=== PATIENT | male | born 1950 | race Caucasian/White ===

== ENCOUNTER 2018-11-22 08:51 | Inpatient (IN) ==
[~2018-11-22 08:51] MED LIST: DEXTROSE 50% 25 GM/50 ML SYRINGE IV PRN; GLUCAGON 1 MG VIAL IM PRN
[2018-11-22 09:21] LABS: Basophils % 0.5 % (0.0-0.8); Eosinophils # 0.1 10*3/uL (0.0-0.87); Eosinophils % 1.4 % (0.00-10.9); Hematocrit 42.7 VOL% (42.0-52.0); Hemoglobin 14.6 GM/DL (14.0-18.0); Immature Granulocytes % 0.5 %; Immature Granulocytes Absolute 0.03 #; Lymphocytes # 1.5 10*3/uL (1.4-4.0); Lymphocytes % 23.4 % (21.2-54.2); Mean Corpuscular HGB Conc 34.2 GM/DL (32-36); Mean Corpuscular Hemoglobin 32 PG (27-34); Mean Corpuscular Volume 92.4 FL (87-102); Mean Platelet Volume 9.2 FL (9.6-12.0); Monocytes # 0.4 10*3/uL (0.11-0.8); Monocytes % 6.8 % (1.7-12.7); Neutrophils # 4.3 10*3/uL (1.4-7.4); Neutrophils % 67.4 % (38.7-73.9); Platelet Count 141 T/CUMM (130-400); Red Blood Count 4.62 MC/CUMM (3.8-5.5); Red Cell Distribution Width 12.9 % (9.3-17.3); White Blood Count 6.4 T/CUMM (4-12)
[2018-11-22 09:53] LABS: Albumin 4.5 G/DL (3.4-5.0); Bilirubin,Total 1.2 MG/DL (0.2-1.0); Calcium 9.3 MG/DL (8.5-10.1); Potassium 3.5 MMOL/L (3.5-5.1); Total Protein 7.2 G/DL (6.4-8.3)
[2018-11-22 10:12] LABS: ABG HCO3 26.1 MMOL/L (20-26); ABG Oxygen Saturation 96.5 % (95-100); ABG PCO2 38.7 MM HG (35-48); ABG PH 7.438 (7.35-7.45); ABG PO2 77.5 MM HG (80-95); ABG TCO2 22.4 MMOL/L (23-27); Allen Test Positive; Pt O2 Delivery Device Room Air
[2018-11-22] MEDS ORDERED: CLORAZEPATE 3.75 MG TABLET PO PRN (10:26)
[2018-11-22] MEDS ORDERED: CALCIUM (CARBONATE) 600 MG TABLET PO SCH (11:00)
[2018-11-22] MEDS: ASPIRIN EC 81 MG TABLET PO SCH ×3 (12:15→13:33)
[2018-11-22] MEDS: CALCIUM (CARBONATE) 600 MG TABLET PO SCH ×3 (12:15→13:33)
[2018-11-22] MEDS: MULTIVITAMIN (CENTRUM) TABLET PO SCH ×2 (12:16→13:33)
[2018-11-22] MEDS: LOSARTAN 50 MG TABLET PO SCH ×3 (12:16→13:33)
[2018-11-22] MEDS: ATORVASTATIN 40 MG TABLET PO SCH ×2 (12:17→13:34)
[2018-11-22] MEDS: ISOSORBIDE MONONITRATE 30 MG TABLET PO SCH ×2 (12:17→13:34)
[2018-11-22] MEDS: CHLORHEXIDINE 0.12% ORAL RINSE 60 ML BOTTLE SWISH/SPIT SCH ×3 (12:18→20:49)
[2018-11-22] MEDS: METOPROLOL SUCCINATE XL 25 MG TABLET PO SCH ×3 (12:18→13:34)
[2018-11-22] MEDS: ASCORBIC ACID 500 MG TABLET PO SCH ×2 (12:19→13:35)
[2018-11-22] MEDS: clonazePAM 0.5 MG TABLET PO SCH ×2 (12:19→13:35)
[2018-11-22] MEDS: SODIUM CHLORIDE 0.9% 1,000 ML IV SCH ×2 (13:32→13:35)
[2018-11-22] MEDS ORDERED: ENOXAPARIN 40 MG/0.4 ML SYRINGE SUBCUT ONE (16:12)
[2018-11-22] MEDS: CHLORHEXIDINE 4% SOLN 118 ML BOTTLE TOP SCH ×2 (16:25→20:22)
[2018-11-22] MEDS: CLORAZEPATE 3.75 MG TABLET PO SCH ×2 (16:28→21:43)
[2018-11-22 16:54] LABS: INR 1.1; PT Patient Result 11.4 SECS
[2018-11-22] MEDS ORDERED: clonazePAM 0.5 MG TABLET PO SCH (21:00)
[2018-11-23] MEDS: CLORAZEPATE 3.75 MG TABLET PO SCH ×2 (04:13→11:02)
[2018-11-23] MEDS: CHLORHEXIDINE 4% SOLN 118 ML BOTTLE TOP SCH ×2 (04:26→08:39)
[2018-11-23] MEDS ORDERED: VANCOMYCIN 1,000 MG VIAL ONE (04:54)
[2018-11-23] MEDS ORDERED: PAPAVERINE 60 MG/2 ML VIAL ONE (04:54)
[2018-11-23] MEDS ORDERED: CALCIUM CHLORIDE 1,000 MG/10 ML VIAL IV ONE (05:41)
[2018-11-23] MEDS ORDERED: PHENYLEPHRINE 10 MG/1 ML VIAL IV ONE (05:42)
[2018-11-23] MEDS ORDERED: HEPARIN/NACL 0.9% 2 UNITS/ML 500 ML IV ONE (05:42)
[2018-11-23] MEDS ORDERED: MIDAZOLAM 10 MG/2 ML VIAL ONE (05:42)
[2018-11-23] MEDS ORDERED: ePHEDrine 50 MG/ML AMP ONE (05:42)
[2018-11-23] MEDS ORDERED: VECURONIUM 10 MG VIAL IV ONE (05:42)
[2018-11-23] MEDS ORDERED: SUFentanil 250 MCG/5 ML AMP ONE (05:42)
[2018-11-23] MEDS ORDERED: NITROGLYCERIN DRIP 50 MG/250 ML BOTTLE IV ONE ×2 (05:43→10:29)
[2018-11-23] MEDS ORDERED: SODIUM CHLORIDE 0.9% 1,000 ML IV ONE (05:43)
[2018-11-23] MEDS ORDERED: LACTATED RINGERS 1,000 ML IV ONE (05:43)
[2018-11-23] MEDS ORDERED: AMINOCAPROIC ACID 5,000 MG/20 ML VIAL ONE (05:43)
[2018-11-23] MEDS ORDERED: SODIUM CHLORIDE 0.9% 250 ML IV ONE (05:43)
[2018-11-23] MEDS ORDERED: ETOMIDATE 40 MG/20 ML VIAL IV ONE (05:43)
[2018-11-23] MEDS ORDERED: SODIUM CHLORIDE 0.9% 1,000 ML IV SCH (06:00)
[2018-11-23] MEDS ORDERED: METOPROLOL SUCCINATE XL 25 MG TABLET PO SCH (06:00)
[2018-11-23] MEDS ORDERED: CEFUROXIME INJ 1,500 MG in SYRINGE 1 EACH IV ONE (06:30)
[2018-11-23] MEDS ORDERED: DIAZEPAM 5 MG TABLET PO ONE (06:30)
[2018-11-23] MEDS ORDERED: ceFAZolin 1,000 MG in SYRINGE 1 EACH IV ONE (06:30)
[2018-11-23] MEDS ORDERED: FAMOTIDINE 20 MG TABLET PO ONE (06:30)
[2018-11-23 07:38] LABS: ABG Base Excess 1.3 MMOL/L (-2.5-2.5); ABG HCO3 25.6 MMOL/L (20-26); ABG PCO2 39.3 MM HG (35-48); ABG PH 7.423 (7.35-7.45); ABG TCO2 22.1 MMOL/L (23-27); Glucose Heart Surgery 105 MG/DL (74-106); Hematocrit Heart Surgery 42.8 PERCENT (42-52); Hemoglobin Heart Surgery 13.9 G/DL (14.0-18.0); Ionized Calcium Arterial 1.21 MMOL/L (1.21-1.46); PCO2 Patient Temp Arterial 39.3 MMHG; PH Patient Temp Arterial 7.423; Patient Temperature 37 CELCIUS; Potassium Heart/CVR 3.6 MMOL/L (3.5-5.1); Sodium Heart/CVR 142 MMOL/L (135-145)
[2018-11-23] MEDS ORDERED: PHENYLEPHRINE DRIP 40 MG/250 ML PREMIX IV ONE (07:56)
[2018-11-23] MEDS ORDERED: POTASSIUM CHLORIDE RIDER 100 ML IV ONE (07:56)
[2018-11-23 08:01] LABS: Apearance,Urine CLEAR (Clear); Bilirubin,Urine Negative (Negative); Blood, Urine Negative (Negative); Glucose,Urine (UA) Negative (Negative); Ketones,Urine Negative (Negative); Nitrite,Urine Negative (Negative); Protein,Urine Negative; RBC,Urine <1 /HPF (0-4); Urine Color Straw (Yellow); Urine Specific Gravity 1.005 (1.001-1.035); Urine Urobilinogen < 2.0 EU/DL (0.2-1.0); WBC,Urine <1 /HPF (0-6)
[2018-11-23] MEDS: CHLORHEXIDINE 0.12% ORAL RINSE 60 ML BOTTLE SWISH/SPIT SCH ×2 (08:38→21:00)
[2018-11-23 08:54] LABS: Hematocrit Heart Surgery 28.4 PERCENT (42-52); Hemoglobin Heart Surgery 9.2 G/DL (14.0-18.0); PCO2 Patient Temp Venous 34.7 MM HG; PH Patient Temp Venous 7.468; PO2 Patient Temp Venous 41.1 MM HG; Potassium Heart/CVR 4.6 MMOL/L (3.5-5.1); VBG Base Excess 1.7 MEQ/L (0-4); VBG HCO3 25.8 MEQ/L (24-28); VBG Oxygen Saturation 86.1 %; VBG PCO2 38.2 MMHG (41-51); VBG PH 7.438; VBG PO2 47.2 MMHG (17-40)
[2018-11-23] MEDS ORDERED: CALCIUM (CARBONATE) 600 MG TABLET PO SCH (09:00)
[2018-11-23] MEDS ORDERED: ASPIRIN EC 81 MG TABLET PO SCH (09:00)
[2018-11-23] MEDS ORDERED: ISOSORBIDE MONONITRATE 30 MG TABLET PO SCH (09:00)
[2018-11-23] MEDS ORDERED: LOSARTAN 50 MG TABLET PO SCH (09:00)
[2018-11-23] MEDS ORDERED: MULTIVITAMIN (CENTRUM) TABLET PO SCH (09:00)
[2018-11-23] MEDS ORDERED: ASCORBIC ACID 500 MG TABLET PO SCH (09:00)
[2018-11-23 09:26] LABS: Hematocrit Heart Surgery 33.1 PERCENT (42-52); Hemoglobin Heart Surgery 10.7 G/DL (14.0-18.0); PCO2 Patient Temp Venous 30.9 MM HG; PH Patient Temp Venous 7.529; PO2 Patient Temp Venous 40.7 MM HG; Potassium Heart/CVR 4.2 MMOL/L (3.5-5.1); VBG Base Excess 3.5 MEQ/L (0-4); VBG HCO3 27.3 MEQ/L (24-28); VBG Oxygen Saturation 83.9 %; VBG PCO2 30.9 MMHG (41-51); VBG PH 7.529; VBG PO2 40.7 MMHG (17-40)
[2018-11-23] MEDS ORDERED: ALBUMIN 25% 25 GM/100 ML VIAL IV ONE (09:53)
[2018-11-23] MEDS ORDERED: PROTAMINE SULFATE 250 MG/25 ML VIAL IV ONE (09:55)
[2018-11-23] MEDS ORDERED: DEXTROSE 5% KCL 20 MEQ 20 MEQ/1,000 ML BAG IV ONE (09:55)
[2018-11-23] MEDS ORDERED: HEPARIN 10,000 UNIT/10 ML VIAL ONE ×2 (09:55→10:52)
[2018-11-23] MEDS ORDERED: MAGNESIUM SULFATE 10 GM/20 ML VIAL IV ONE (09:55)
[2018-11-23] MEDS ORDERED: POTASSIUM CHLORIDE 20 MEQ/10 ML VIAL ONE (09:55)
[2018-11-23] MEDS ORDERED: SODIUM BICARBONATE 50 MEQ/50 ML VIAL IV ONE (09:55)
[2018-11-23] MEDS ORDERED: MANNITOL 100 GM/500 ML BAG IV ONE (09:55)
[2018-11-23] MEDS ORDERED: methylPREDNISolone SOD SUC 1,000 MG/8 ML VIAL ONE (09:55)
[2018-11-23] MEDS ORDERED: FUROSEMIDE 20 MG/2 ML VIAL ONE (09:55)
[2018-11-23 10:02] LABS: ABG Base Excess 1.6 MMOL/L (-2.5-2.5); ABG HCO3 25.9 MMOL/L (20-26); ABG PCO2 37.7 MM HG (35-48); ABG TCO2 22.7 MMOL/L (23-27); Glucose Heart Surgery 211 MG/DL (74-106); Hematocrit Heart Surgery 35.9 PERCENT (42-52); Hemoglobin Heart Surgery 11.6 G/DL (14.0-18.0); Ionized Calcium Arterial 1.18 MMOL/L (1.21-1.46); PCO2 Patient Temp Arterial 37.7 MMHG; Patient Temperature 37 CELCIUS; Potassium Heart/CVR 3.9 MMOL/L (3.5-5.1); Sodium Heart/CVR 138 MMOL/L (135-145)
[2018-11-23] MEDS ORDERED: ALBUMIN 5% 12.5 GM/250 ML VIAL IV ONE ×2 (10:27→10:28)
[2018-11-23] MEDS: SODIUM CHLORIDE 0.45% 1,000 ML IV SCH (10:40)
[2018-11-23] MEDS ORDERED: NITROGLYCERIN DRIP 50 MG/250 ML BOTTLE IV PRN (10:40)
[2018-11-23] MEDS ORDERED: ESMOLOL 100 MG/10 ML VIAL IV ONE (10:52)
[2018-11-23] MEDS ORDERED: VECURONIUM 10 MG VIAL IV PRN ×2 (11:01)
[2018-11-23] MEDS ORDERED: CALCIUM CHLORIDE 1,000 MG/10 ML SYRINGE IV PRN (11:01)
[2018-11-23] MEDS ORDERED: SODIUM CHLORIDE 0.45% 1,000 ML IV SCH (11:01)
[2018-11-23] MEDS ORDERED: LACTATED RINGERS 250 ML IV PRN (11:01)
[2018-11-23] MEDS ORDERED: ACETAMINOPHEN 650 MG SUPP RECTAL PRN (11:01)
[2018-11-23] MEDS ORDERED: MIDAZOLAM 10 MG/2 ML VIAL IV PRN (11:01)
[2018-11-23] MEDS ORDERED: DEXTROSE 50% 25 GM/50 ML SYRINGE IV PRN ×2 (11:01)
[2018-11-23] MEDS ORDERED: MAGNESIUM SULF RIDER 4 GM in PREMIX 1 EACH IV PRN (11:01)
[2018-11-23] MEDS ORDERED: NITROPRUSSIDE 100 MG in DEXTROSE 5% 250 ML IV PRN (11:01)
[2018-11-23] MEDS ORDERED: MAGNESIUM SULF RIDER 2 GM in PREMIX 1 EACH IV PRN (11:01)
[2018-11-23] MEDS ORDERED: INSULIN REGULAR 100 UNIT/ML IV PRN (11:01)
[2018-11-23] MEDS ORDERED: INSULIN REGULAR 100 UNIT/ML IV ONE (11:01)
[2018-11-23] MEDS ORDERED: INSULIN REGULAR DRIP 100 ML IV SCH (11:01)
[2018-11-23 11:08] LABS: ABG Base Excess 1.8 MMOL/L (-2.5-2.5); ABG Oxygen Saturation 98.8 % (95-100); ABG PCO2 39.5 MM HG (35-48); ABG PH 7.428 (7.35-7.45); ABG TCO2 22.8 MMOL/L (23-27); Glucose Heart Surgery 178 MG/DL (74-106); Hemoglobin Heart Surgery 12.7 G/DL (14.0-18.0); Potassium Heart/CVR 3.4 MMOL/L (3.5-5.1)
[2018-11-23 11:10] LABS: Basophils % 0.2 % (0.0-0.8); Eosinophils # 0.1 10*3/uL (0.0-0.87); Hematocrit 35.1 VOL% (42.0-52.0); Immature Granulocytes % 0.7 %; Immature Granulocytes Absolute 0.04 #; Lymphocytes # 0.6 10*3/uL (1.4-4.0); Lymphocytes % 9.4 % (21.2-54.2); Mean Corpuscular HGB Conc 34.5 GM/DL (32-36); Mean Corpuscular Hemoglobin 32 PG (27-34); Mean Corpuscular Volume 92.1 FL (87-102); Mean Platelet Volume 9.5 FL (9.6-12.0); Monocytes # 0.2 10*3/uL (0.11-0.8); Monocytes % 3.3 % (1.7-12.7); Neutrophils # 5.3 10*3/uL (1.4-7.4); Neutrophils % 85.4 % (38.7-73.9); Red Blood Count 3.81 MC/CUMM (3.8-5.5); Red Cell Distribution Width 12.9 % (9.3-17.3); White Blood Count 6.2 T/CUMM (4-12)
[2018-11-23 11:11] LABS: Hemoglobin 12.1 GM/DL (14.0-18.0); Platelet Count 103 T/CUMM (130-400)
[2018-11-23] MEDS: POTASSIUM CHLORIDE RIDER 20 MEQ in PREMIX 1 EACH IV PRN ×5 (11:15→22:01)
[2018-11-23 11:19] LABS: INR 1.1; PT Patient Result 11.6 SECS; Partial Thromboplastin Time 23.3 SECS (0-40)
[2018-11-23 11:29] LABS: Albumin 3.8 G/DL (3.4-5.0); Bilirubin,Total 1.5 MG/DL (0.2-1.0); Calcium 9.2 MG/DL (8.5-10.1); Osmolality,Calculated 287.1 MOS/KG (273-304); Potassium 3.5 MMOL/L (3.5-5.1); Total Protein 6.2 G/DL (6.4-8.3)
[2018-11-23] MEDS: KETOROLAC 30 MG/1 ML VIAL IV SCH ×3 (11:29→23:15)
[2018-11-23] MEDS: LACTATED RINGERS 1,000 ML IV PRN ×2 (11:30→13:30)
[2018-11-23 11:31] LABS: CKMB % 6.4 %
[2018-11-23 11:33] LABS: Troponin I 3.04 NG/ML (0.00-0.045)
[2018-11-23 11:38] LABS: Hypochromasia 1+; Platelet Estimate Decreased
[2018-11-23] MEDS: PHENYLEPHRINE DRIP 40 MG/250 ML PREMIX IV PRN (11:49)
[2018-11-23] MEDS: ALBUMIN 5% 12.5 GM in PREMIX 1 EACH IV PRN ×6 (12:28→14:55)
[2018-11-23] MEDS ORDERED: SEVOFLURANE 1 UNIT/15 MINUTE INH ONE (12:33)
[2018-11-23] MEDS: MIDAZOLAM 2 MG/2 ML VIAL IV PRN ×2 (13:05→15:20)
[2018-11-23 13:11] LABS: ABG Base Excess 0.5 MMOL/L (-2.5-2.5); ABG HCO3 24.8 MMOL/L (20-26); ABG Oxygen Saturation 97.1 % (95-100); ABG PCO2 37.8 MM HG (35-48); ABG PH 7.423 (7.35-7.45); ABG PO2 82.3 MM HG (80-95); ABG TCO2 22.2 MMOL/L (23-27); Glucose Heart Surgery 143 MG/DL (74-106); Hemoglobin Heart Surgery 10.7 G/DL (14.0-18.0); Potassium Heart/CVR 3.9 MMOL/L (3.5-5.1)
[2018-11-23] MEDS: MORPHINE 4 MG/1 ML VIAL IV PRN ×2 (14:00→17:45)
[2018-11-23] MEDS: POTASSIUM CHLORIDE RIDER 10 MEQ in PREMIX 1 EACH IV PRN (14:34)
[2018-11-23 15:05] LABS: ABG Base Excess -2.9 MMOL/L (-2.5-2.5); ABG Oxygen Saturation 99.5 % (95-100); ABG PCO2 35.7 MM HG (35-48); ABG PH 7.389 (7.35-7.45); ABG TCO2 19.9 MMOL/L (23-27); Glucose Heart Surgery 176 MG/DL (74-106); Hematocrit Heart Surgery 27.9 PERCENT (42-52)
[2018-11-23 16:44] LABS: ABG Base Excess -1.4 MMOL/L (-2.5-2.5); ABG HCO3 23.3 MMOL/L (20-26); ABG Oxygen Saturation 99.1 % (95-100); ABG PH 7.378 (7.35-7.45); ABG TCO2 21.8 MMOL/L (23-27); Glucose Heart Surgery 192 MG/DL (74-106); Hematocrit Heart Surgery 27.9 PERCENT (42-52); Potassium Heart/CVR 4.6 MMOL/L (3.5-5.1)
[2018-11-23 17:23] LABS: ABG Base Excess -2.4 MMOL/L (-2.5-2.5); ABG HCO3 22.4 MMOL/L (20-26); ABG Oxygen Saturation 98.7 % (95-100); ABG PCO2 41.2 MM HG (35-48); ABG PH 7.354 (7.35-7.45); ABG TCO2 21.3 MMOL/L (23-27); Glucose Heart Surgery 211 MG/DL (74-106); Hematocrit Heart Surgery 27.8 PERCENT (42-52); Potassium Heart/CVR 4.1 MMOL/L (3.5-5.1)
[2018-11-23] MEDS: ONDANSETRON 4 MG/2 ML VIAL IV PRN ×2 (17:38→20:17)
[2018-11-23] MEDS: MORPHINE 10 MG/1 ML VIAL IV PRN (19:21)
[2018-11-23] MEDS: FUROSEMIDE 40 MG/4 ML VIAL IV PRN (19:22)
[2018-11-23 20:53] LABS: CKMB % 6.3 %
[2018-11-23 20:57] LABS: Troponin I 5.78 NG/ML (0.00-0.045)
[2018-11-23] MEDS ORDERED: ATORVASTATIN 40 MG TABLET PO SCH (21:00)
[2018-11-24 01:01] LABS: Potassium 3.9 MMOL/L (3.5-5.1)
[2018-11-24] MEDS: MORPHINE 4 MG/1 ML VIAL IV PRN (02:50)
[2018-11-24] MEDS: POTASSIUM CHLORIDE RIDER 20 MEQ in PREMIX 1 EACH IV PRN (02:59)
[2018-11-24] MEDS: POTASSIUM CHLORIDE RIDER 10 MEQ in PREMIX 1 EACH IV PRN (03:40)
[2018-11-24] MEDS: KETOROLAC 30 MG/1 ML VIAL IV SCH ×3 (04:36→18:50)
[2018-11-24 04:37] LABS: ABG Base Excess -1.3 MMOL/L (-2.5-2.5); ABG HCO3 23.3 MMOL/L (20-26); ABG Oxygen Saturation 97.8 % (95-100); ABG PCO2 34.3 MM HG (35-48); ABG PH 7.427 (7.35-7.45); ABG PO2 83.8 MM HG (80-95); ABG TCO2 20.7 MMOL/L (23-27); Glucose Heart Surgery 126 MG/DL (74-106); Hematocrit Heart Surgery 29.1 PERCENT (42-52); Hemoglobin Heart Surgery 9.4 G/DL (14.0-18.0); Potassium Heart/CVR 4.3 MMOL/L (3.5-5.1)
[2018-11-24 04:43] LABS: Basophils % 0.1 % (0.0-0.8); Hematocrit 27.2 VOL% (42.0-52.0); Hemoglobin 9.4 GM/DL (14.0-18.0); Immature Granulocytes % 0.5 %; Immature Granulocytes Absolute 0.06 #; Lymphocytes # 0.6 10*3/uL (1.4-4.0); Lymphocytes % 5.2 % (21.2-54.2); Mean Corpuscular HGB Conc 34.6 GM/DL (32-36); Mean Corpuscular Hemoglobin 32 PG (27-34); Mean Corpuscular Volume 93.2 FL (87-102); Mean Platelet Volume 9.9 FL (9.6-12.0); Monocytes # 0.6 10*3/uL (0.11-0.8); Monocytes % 5.1 % (1.7-12.7); Neutrophils % 89.1 % (38.7-73.9); Platelet Count 85 T/CUMM (130-400); Red Blood Count 2.92 MC/CUMM (3.8-5.5); Red Cell Distribution Width 12.9 % (9.3-17.3); White Blood Count 11.3 T/CUMM (4-12)
[2018-11-24 05:00] LABS: Hypochromasia 1+; Ovalocytes Slight; Platelet Estimate Decreased
[2018-11-24] MEDS ORDERED: HALOPERIDOL 5 MG/ML AMP IV ONE ×2 (05:07→07:01)
[2018-11-24 05:17] LABS: Albumin 4.7 G/DL (3.4-5.0); Bilirubin,Direct 0.33 MG/DL (0.0-0.20); Bilirubin,Total 1.3 MG/DL (0.2-1.0); Calcium 8.2 MG/DL (8.5-10.1); Potassium 4.5 MMOL/L (3.5-5.1); Total Protein 6.2 G/DL (6.4-8.3)
[2018-11-24 05:18] LABS: CKMB % 5.1 %
[2018-11-24 05:20] LABS: Troponin I 3.17 NG/ML (0.00-0.045)
[2018-11-24] MEDS: MIDAZOLAM 2 MG/2 ML VIAL IV PRN ×2 (06:15→06:30)
[2018-11-24] MEDS ORDERED: WARFARIN 5 MG TABLET PO ONE (06:18)
[2018-11-24] MEDS ORDERED: HALOPERIDOL 5 MG/ML AMP IV PRN ×2 (06:31→06:51)
[2018-11-24] MEDS ORDERED: diphenhydrAMINE 50 MG/1 ML VIAL ONE (06:59)
[2018-11-24] MEDS ORDERED: diphenhydrAMINE 50 MG/1 ML VIAL IV ONE (07:01)
[2018-11-24] MEDS: INSULIN REGULAR 100 UNIT/ML SUBCUT SCH ×4 (08:00→23:12)
[2018-11-24] MEDS: DEXMEDETOMIDINE 200 MCG in SODIUM CHLORIDE 0.9% 48 ML IV PRN (08:13)
[2018-11-24] MEDS: CHLORHEXIDINE 0.12% ORAL RINSE 60 ML BOTTLE SWISH/SPIT SCH ×2 (09:00→21:25)
[2018-11-24] MEDS: METOPROLOL TARTRATE 25 MG TABLET PO SCH ×2 (09:00→21:24)
[2018-11-24] MEDS: MAGNESIUM OXIDE 400 MG TABLET PO SCH ×3 (09:00→21:24)
[2018-11-24] MEDS: MORPHINE 10 MG/1 ML VIAL IV PRN ×3 (10:49→16:40)
[2018-11-24 11:47] LABS: Troponin I 2.78 NG/ML (0.00-0.045)
[2018-11-24] MEDS: SODIUM CHLORIDE 0.45% 1,000 ML IV SCH (13:52)
[2018-11-24] MEDS: FUROSEMIDE 40 MG/4 ML VIAL IV PRN (18:46)
[2018-11-24] MEDS: clonazePAM 0.5 MG TABLET PO SCH (21:24)
[2018-11-24] MEDS: PHENYLEPHRINE DRIP 40 MG/250 ML PREMIX IV PRN (22:04)
[2018-11-25] MEDS: MORPHINE 10 MG/1 ML VIAL IV PRN (01:06)
[2018-11-25] MEDS: INSULIN REGULAR 100 UNIT/ML SUBCUT SCH ×6 (01:12→20:09)
[2018-11-25] MEDS: MORPHINE 4 MG/1 ML VIAL IV PRN (02:12)
[2018-11-25] MEDS: DEXMEDETOMIDINE 200 MCG in SODIUM CHLORIDE 0.9% 48 ML IV PRN (02:18)
[2018-11-25 05:30] LABS: Basophils % 0.1 % (0.0-0.8); Hematocrit 31.7 VOL% (42.0-52.0); Hemoglobin 10.6 GM/DL (14.0-18.0); Immature Granulocytes % 0.6 %; Immature Granulocytes Absolute 0.06 #; Lymphocytes # 0.5 10*3/uL (1.4-4.0); Lymphocytes % 5.3 % (21.2-54.2); Mean Corpuscular HGB Conc 33.4 GM/DL (32-36); Mean Corpuscular Hemoglobin 32 PG (27-34); Mean Corpuscular Volume 94.6 FL (87-102); Mean Platelet Volume 10.1 FL (9.6-12.0); Monocytes # 0.6 10*3/uL (0.11-0.8); Monocytes % 5.5 % (1.7-12.7); Neutrophils # 8.9 10*3/uL (1.4-7.4); Neutrophils % 88.5 % (38.7-73.9); Platelet Count 79 T/CUMM (130-400); Red Blood Count 3.35 MC/CUMM (3.8-5.5); Red Cell Distribution Width 13.1 % (9.3-17.3)
[2018-11-25 05:39] LABS: INR 1.1; PT Patient Result 11.4 SECS
[2018-11-25 05:45] LABS: Albumin 4.2 G/DL (3.4-5.0); Bilirubin,Direct 0.36 MG/DL (0.0-0.20); Bilirubin,Total 1.5 MG/DL (0.2-1.0); Calcium 8.7 MG/DL (8.5-10.1); Osmolality,Calculated 288.1 MOS/KG (273-304); Potassium 3.9 MMOL/L (3.5-5.1); Total Protein 7.1 G/DL (6.4-8.3)
[2018-11-25 05:55] LABS: Hypochromasia 1+; Microcytosis Slight; Ovalocytes Slight; Platelet Estimate Decreased
[2018-11-25] MEDS: POTASSIUM CHLORIDE RIDER 20 MEQ in PREMIX 1 EACH IV PRN (07:03)
[2018-11-25] MEDS: HALOPERIDOL 5 MG/ML AMP IV SCH ×3 (08:30→21:07)
[2018-11-25] MEDS ORDERED: WARFARIN 5 MG TABLET PO ONE (08:43)
[2018-11-25] MEDS: METOPROLOL TARTRATE 25 MG TABLET PO SCH ×2 (09:14→21:10)
[2018-11-25] MEDS: MAGNESIUM OXIDE 400 MG TABLET PO SCH ×3 (09:14→21:10)
[2018-11-25] MEDS: ENOXAPARIN 40 MG/0.4 ML SYRINGE SUBCUT SCH (09:16)
[2018-11-25] MEDS: CHLORHEXIDINE 0.12% ORAL RINSE 60 ML BOTTLE SWISH/SPIT SCH ×2 (09:29→21:10)
[2018-11-25] MEDS: oxyCODONE/ACETAMINOPHEN 5-325 MG TABLET PO PRN (10:20)
[2018-11-25] MEDS: SODIUM CHLORIDE 0.45% 1,000 ML IV SCH (19:14)
[2018-11-25] MEDS: ATORVASTATIN 20 MG TABLET PO SCH (21:10)
[2018-11-25] MEDS: clonazePAM 0.5 MG TABLET PO SCH (21:11)
[2018-11-26] MEDS: INSULIN REGULAR 100 UNIT/ML SUBCUT SCH ×6 (00:29→20:04)
[2018-11-26] MEDS: HALOPERIDOL 5 MG/ML AMP IV SCH ×2 (02:20→10:28)
[2018-11-26 04:21] LABS: Basophils % 0.1 % (0.0-0.8); Hematocrit 29.1 VOL% (42.0-52.0); Hemoglobin 9.8 GM/DL (14.0-18.0); Immature Granulocytes % 0.7 %; Immature Granulocytes Absolute 0.05 #; Lymphocytes # 0.7 10*3/uL (1.4-4.0); Lymphocytes % 9.8 % (21.2-54.2); Mean Corpuscular HGB Conc 33.7 GM/DL (32-36); Mean Corpuscular Hemoglobin 32 PG (27-34); Mean Corpuscular Volume 94.5 FL (87-102); Mean Platelet Volume 9.8 FL (9.6-12.0); Monocytes # 0.6 10*3/uL (0.11-0.8); Monocytes % 8.5 % (1.7-12.7); Neutrophils # 5.4 10*3/uL (1.4-7.4); Neutrophils % 80.9 % (38.7-73.9); Platelet Count 83 T/CUMM (130-400); Red Blood Count 3.08 MC/CUMM (3.8-5.5); Red Cell Distribution Width 12.9 % (9.3-17.3); White Blood Count 6.7 T/CUMM (4-12)
[2018-11-26 04:28] LABS: INR 1.2
[2018-11-26 04:52] LABS: Albumin 3.7 G/DL (3.4-5.0); Bilirubin,Direct 0.39 MG/DL (0.0-0.20); Bilirubin,Total 1.9 MG/DL (0.2-1.0); Calcium 7.7 MG/DL (8.5-10.1); Osmolality,Calculated 284.3 MOS/KG (273-304); Potassium 3.6 MMOL/L (3.5-5.1); Total Protein 6.2 G/DL (6.4-8.3)
[2018-11-26 05:13] LABS: Lymphocytes 8 % (20-55); Segmented Neutrophils 85 % (50-85); Total Cells Counted 100
[2018-11-26 05:14] LABS: Anisocytosis Slight; Microcytosis Slight
[2018-11-26 05:15] LABS: Ovalocytes Slight; Platelet Estimate Decreased
[2018-11-26] MEDS: POTASSIUM CHLORIDE RIDER 20 MEQ in PREMIX 1 EACH IV PRN (05:29)
[2018-11-26] MEDS ORDERED: WARFARIN 5 MG TABLET PO ONE (05:55)
[2018-11-26] MEDS: POTASSIUM CHLORIDE RIDER 10 MEQ in PREMIX 1 EACH IV PRN (06:02)
[2018-11-26] MEDS ORDERED: POTASSIUM CHLORIDE RIDER 20 MEQ in PREMIX 1 EACH IV PRN (08:56)
[2018-11-26] MEDS ORDERED: SODIUM CHLOR 0.45% KCL 20 MEQ 20 MEQ/1,000 ML BAG IV SCH (09:00)
[2018-11-26] MEDS: ENOXAPARIN 40 MG/0.4 ML SYRINGE SUBCUT SCH (10:28)
[2018-11-26] MEDS: METOPROLOL TARTRATE 25 MG TABLET PO SCH ×2 (10:29→20:05)
[2018-11-26] MEDS: MAGNESIUM OXIDE 400 MG TABLET PO SCH ×3 (10:29→20:05)
[2018-11-26] MEDS: CHLORHEXIDINE 0.12% ORAL RINSE 60 ML BOTTLE SWISH/SPIT SCH ×2 (10:30→20:04)
[2018-11-26] MEDS ORDERED: HALOPERIDOL 5 MG/ML AMP IV PRN (16:20)
[2018-11-26] MEDS: oxyCODONE/ACETAMINOPHEN 5-325 MG TABLET PO PRN (18:00)
[2018-11-26] MEDS: CLORAZEPATE 3.75 MG TABLET PO SCH ×2 (18:16→20:05)
[2018-11-26] MEDS: ATORVASTATIN 20 MG TABLET PO SCH (20:05)
[2018-11-26] MEDS: clonazePAM 0.5 MG TABLET PO SCH (20:05)
[2018-11-27] MEDS: INSULIN REGULAR 100 UNIT/ML SUBCUT SCH ×6 (00:05→20:11)
[2018-11-27 04:35] LABS: Basophils % 0.2 % (0.0-0.8); Eosinophils % 0.5 % (0.00-10.9); Hematocrit 31.2 VOL% (42.0-52.0); Hemoglobin 10.7 GM/DL (14.0-18.0); Immature Granulocytes % 0.6 %; Immature Granulocytes Absolute 0.05 #; Lymphocytes # 0.9 10*3/uL (1.4-4.0); Lymphocytes % 11.3 % (21.2-54.2); Mean Corpuscular HGB Conc 34.3 GM/DL (32-36); Mean Corpuscular Hemoglobin 32 PG (27-34); Mean Corpuscular Volume 92.6 FL (87-102); Mean Platelet Volume 9.8 FL (9.6-12.0); Monocytes # 0.7 10*3/uL (0.11-0.8); Monocytes % 8.1 % (1.7-12.7); Neutrophils # 6.4 10*3/uL (1.4-7.4); Neutrophils % 79.3 % (38.7-73.9); Platelet Count 110 T/CUMM (130-400); Red Blood Count 3.37 MC/CUMM (3.8-5.5); Red Cell Distribution Width 12.9 % (9.3-17.3)
[2018-11-27 04:47] LABS: INR 1.9; PT Patient Result 20.9 SECS
[2018-11-27 05:02] LABS: Calcium 8.6 MG/DL (8.5-10.1); Osmolality,Calculated 288.1 MOS/KG (273-304); Potassium 3.9 MMOL/L (3.5-5.1)
[2018-11-27] MEDS: POTASSIUM CHLORIDE RIDER 20 MEQ in PREMIX 1 EACH IV PRN (05:41)
[2018-11-27] MEDS: SODIUM CHLORIDE 0.45% 1,000 ML IV SCH ×2 (05:42→05:43)
[2018-11-27] MEDS: POTASSIUM CHLORIDE RIDER 10 MEQ in PREMIX 1 EACH IV PRN (06:11)
[2018-11-27] MEDS: HALOPERIDOL 5 MG/ML AMP IV SCH (08:18)
[2018-11-27] MEDS ORDERED: CLORAZEPATE 3.75 MG TABLET PO PRN (09:11)
[2018-11-27] MEDS: MAGNESIUM OXIDE 400 MG TABLET PO SCH ×3 (09:17→21:08)
[2018-11-27] MEDS: ENOXAPARIN 40 MG/0.4 ML SYRINGE SUBCUT SCH (09:17)
[2018-11-27] MEDS: METOPROLOL TARTRATE 25 MG TABLET PO SCH ×2 (09:17→21:08)
[2018-11-27] MEDS: CLORAZEPATE 3.75 MG TABLET PO SCH (09:25)
[2018-11-27] MEDS: CHLORHEXIDINE 0.12% ORAL RINSE 60 ML BOTTLE SWISH/SPIT SCH ×2 (17:34→21:09)
[2018-11-27] MEDS ORDERED: WARFARIN 2.5 MG TABLET PO SCH (18:00)
[2018-11-27] MEDS: ATORVASTATIN 20 MG TABLET PO SCH (21:08)
[2018-11-27] MEDS: clonazePAM 0.5 MG TABLET PO SCH (21:08)
[2018-11-28] MEDS: INSULIN REGULAR 100 UNIT/ML SUBCUT SCH ×3 (00:23→07:21)
[2018-11-28 05:51] LABS: Basophils % 0.2 % (0.0-0.8); Eosinophils # 0.1 10*3/uL (0.0-0.87); Eosinophils % 1.5 % (0.00-10.9); Hematocrit 32.3 VOL% (42.0-52.0); Hemoglobin 10.8 GM/DL (14.0-18.0); Immature Granulocytes % 0.9 %; Immature Granulocytes Absolute 0.07 #; Lymphocytes # 0.9 10*3/uL (1.4-4.0); Lymphocytes % 11.3 % (21.2-54.2); Mean Corpuscular HGB Conc 33.4 GM/DL (32-36); Mean Corpuscular Hemoglobin 31 PG (27-34); Mean Corpuscular Volume 93.4 FL (87-102); Mean Platelet Volume 10.1 FL (9.6-12.0); Monocytes # 0.8 10*3/uL (0.11-0.8); Monocytes % 9.4 % (1.7-12.7); Neutrophils # 6.2 10*3/uL (1.4-7.4); Neutrophils % 76.7 % (38.7-73.9); Platelet Count 161 T/CUMM (130-400); Red Blood Count 3.46 MC/CUMM (3.8-5.5); Red Cell Distribution Width 12.9 % (9.3-17.3); White Blood Count 8.1 T/CUMM (4-12)
[2018-11-28 06:05] LABS: INR 1.7; PT Patient Result 18.3 SECS
[2018-11-28 06:08] LABS: Calcium 8.5 MG/DL (8.5-10.1); Osmolality,Calculated 289.1 MOS/KG (273-304); Potassium 3.7 MMOL/L (3.5-5.1)
[2018-11-28] MEDS: SODIUM CHLORIDE 0.45% 1,000 ML IV SCH (06:28)
[2018-11-28] MEDS: POTASSIUM CHLORIDE RIDER 20 MEQ in PREMIX 1 EACH IV PRN (06:32)
[2018-11-28] MEDS: POTASSIUM CHLORIDE RIDER 10 MEQ in PREMIX 1 EACH IV PRN (07:04)
[2018-11-28] MEDS: MAGNESIUM OXIDE 400 MG TABLET PO SCH ×3 (09:06→21:02)
[2018-11-28] MEDS: CHLORHEXIDINE 0.12% ORAL RINSE 60 ML BOTTLE SWISH/SPIT SCH ×3 (09:06→21:04)
[2018-11-28] MEDS: METOPROLOL TARTRATE 25 MG TABLET PO SCH ×2 (09:06→21:02)
[2018-11-28] MEDS: ENOXAPARIN 40 MG/0.4 ML SYRINGE SUBCUT SCH (09:06)
[2018-11-28] MEDS ORDERED: MAGNESIUM SULF RIDER 4 GM in PREMIX 1 EACH IV PRN (09:39)
[2018-11-28] MEDS ORDERED: ALUMINUM/MAGNES/SIMETH MAX STR 30 ML UDCUP PO PRN (09:39)
[2018-11-28] MEDS ORDERED: DEXTROSE 50% 25 GM/50 ML SYRINGE IV PRN (09:39)
[2018-11-28] MEDS ORDERED: ACETAMINOPHEN 325 MG TABLET PO PRN (09:39)
[2018-11-28] MEDS ORDERED: MAGNESIUM SULF RIDER 2 GM in PREMIX 1 EACH IV PRN (09:39)
[2018-11-28] MEDS ORDERED: ONDANSETRON 4 MG/2 ML VIAL IV PRN (09:39)
[2018-11-28] MEDS ORDERED: MAGNESIUM HYDROXIDE SUSP 30 ML UDCUP PO PRN (09:39)
[2018-11-28] MEDS ORDERED: GLUCAGON 1 MG VIAL IM PRN ×2 (09:39)
[2018-11-28] MEDS ORDERED: DEXTROSE 50% 25 GM/50 ML VIAL IV PRN (09:39)
[2018-11-28] MEDS ORDERED: SODIUM CHLOR 0.45% KCL 20 MEQ 20 MEQ/1,000 ML BAG IV SCH (09:39)
[2018-11-28] MEDS: ASPIRIN EC 325 MG TABLET PO SCH (10:48)
[2018-11-28] MEDS: DOCUSATE SODIUM 100 MG CAPSULE PO SCH (10:48)
[2018-11-28] MEDS: FERROUS SULFATE 325 MG TABLET PO SCH (10:48)
[2018-11-28] MEDS: PANTOPRAZOLE 40 MG TABLET PO SCH (10:48)
[2018-11-28] MEDS: oxyCODONE/ACETAMINOPHEN 5-325 MG TABLET PO PRN (13:05)
[2018-11-28] MEDS: WARFARIN 5 MG TABLET PO SCH (17:13)
[2018-11-28] MEDS: ATORVASTATIN 20 MG TABLET PO SCH (21:02)
[2018-11-28] MEDS: POTASSIUM CHLORIDE 20 MEQ TABLET PO PRN ×2 (21:02→23:04)
[2018-11-28] MEDS: clonazePAM 0.5 MG TABLET PO SCH (21:02)
[2018-11-29] MEDS ORDERED: FUROSEMIDE 40 MG/4 ML VIAL IV ONE (06:00)
[2018-11-29 06:13] LABS: Basophils % 0.3 % (0.0-0.8); Eosinophils # 0.2 10*3/uL (0.0-0.87); Eosinophils % 2.4 % (0.00-10.9); Hematocrit 29.8 VOL% (42.0-52.0); Hemoglobin 9.7 GM/DL (14.0-18.0); Immature Granulocytes % 0.6 %; Immature Granulocytes Absolute 0.04 #; Lymphocytes % 14.4 % (21.2-54.2); Mean Corpuscular HGB Conc 32.6 GM/DL (32-36); Mean Corpuscular Hemoglobin 31 PG (27-34); Mean Corpuscular Volume 96.4 FL (87-102); Mean Platelet Volume 9.5 FL (9.6-12.0); Monocytes # 0.5 10*3/uL (0.11-0.8); Monocytes % 7.4 % (1.7-12.7); Neutrophils # 5.3 10*3/uL (1.4-7.4); Neutrophils % 74.9 % (38.7-73.9); Platelet Count 126 T/CUMM (130-400); Red Blood Count 3.09 MC/CUMM (3.8-5.5); Red Cell Distribution Width 13.2 % (9.3-17.3); White Blood Count 7.1 T/CUMM (4-12)
[2018-11-29 06:19] LABS: INR 1.4; PT Patient Result 15.4 SECS
[2018-11-29 06:49] LABS: Alanine Aminotransferase 31 U/L (16-61); Albumin 3.3 G/DL (3.4-5.0); Alkaline Phosphatase 53 U/L (45-117); Aspartate Amino Transferase 22 U/L (0-37); Bilirubin,Indirect 0.9 MG/DL (0.0-1.0); Blood Urea Nitrogen 30 MG/DL (7-18); Calcium 8.4 MG/DL (8.5-10.1); Glucose 153 MG/DL (74-106); Osmolality,Calculated 296.7 MOS/KG (273-304); Potassium 3.9 MMOL/L (3.5-5.1); Sodium 145 MMOL/L (136-145); Total Protein 6.1 G/DL (6.4-8.3)
[2018-11-29 06:50] LABS: Troponin I 0.231 NG/ML (0.00-0.045)
[2018-11-29] MEDS: oxyCODONE/ACETAMINOPHEN 5-325 MG TABLET PO PRN ×2 (07:34→16:11)
[2018-11-29] MEDS: PANTOPRAZOLE 40 MG TABLET PO SCH (09:08)
[2018-11-29] MEDS: ASPIRIN EC 325 MG TABLET PO SCH (09:08)
[2018-11-29] MEDS: CHLORHEXIDINE 0.12% ORAL RINSE 60 ML BOTTLE SWISH/SPIT SCH ×2 (09:08→20:50)
[2018-11-29] MEDS: ENOXAPARIN 80 MG/0.8 ML SYRINGE SUBCUT SCH ×2 (09:08→20:41)
[2018-11-29] MEDS: MAGNESIUM OXIDE 400 MG TABLET PO SCH ×3 (09:08→20:42)
[2018-11-29] MEDS: METOPROLOL TARTRATE 25 MG TABLET PO SCH ×2 (09:08→20:42)
[2018-11-29] MEDS: FERROUS SULFATE 325 MG TABLET PO SCH (09:09)
[2018-11-29] MEDS: DOCUSATE SODIUM 100 MG CAPSULE PO SCH (09:09)
[2018-11-29] MEDS: WARFARIN 5 MG TABLET PO SCH (17:03)
[2018-11-29] MEDS: clonazePAM 0.5 MG TABLET PO SCH (20:41)
[2018-11-29] MEDS: ATORVASTATIN 20 MG TABLET PO SCH (20:41)
[2018-11-29] MEDS: POTASSIUM CHLORIDE 20 MEQ TABLET PO PRN (20:42)
[2018-11-29] MEDS ORDERED: SERTRALINE 25 MG TABLET PO SCH (21:00)
[2018-11-30 05:32] LABS: INR 1.6; PT Patient Result 17.2 SECS
[2018-11-30 05:41] LABS: Basophils % 0.4 % (0.0-0.8); Eosinophils # 0.3 10*3/uL (0.0-0.87); Eosinophils % 4.3 % (0.00-10.9); Hematocrit 31.3 VOL% (42.0-52.0); Hemoglobin 10.3 GM/DL (14.0-18.0); Immature Granulocytes Absolute 0.07 #; Lymphocytes # 1.4 10*3/uL (1.4-4.0); Lymphocytes % 20.2 % (21.2-54.2); Mean Corpuscular HGB Conc 32.9 GM/DL (32-36); Mean Corpuscular Hemoglobin 31 PG (27-34); Mean Corpuscular Volume 95.1 FL (87-102); Mean Platelet Volume 10.7 FL (9.6-12.0); Monocytes # 0.7 10*3/uL (0.11-0.8); Monocytes % 9.7 % (1.7-12.7); Neutrophils # 4.5 10*3/uL (1.4-7.4); Neutrophils % 64.4 % (38.7-73.9); Platelet Count 189 T/CUMM (130-400); Red Blood Count 3.29 MC/CUMM (3.8-5.5); White Blood Count 6.9 T/CUMM (4-12)
[2018-11-30 05:52] LABS: Alanine Aminotransferase 40 U/L (16-61); Albumin 3.5 G/DL (3.4-5.0); Alkaline Phosphatase 63 U/L (45-117); Aspartate Amino Transferase 25 U/L (0-37); Bilirubin,Indirect 0.7 MG/DL (0.0-1.0); Blood Urea Nitrogen 33 MG/DL (7-18); Calcium 8.8 MG/DL (8.5-10.1); Glucose 70 MG/DL (74-106); Sodium 143 MMOL/L (136-145); Total Protein 6.5 G/DL (6.4-8.3)
[2018-11-30 08:06] VITALS: BP 137/92
[2018-11-30] MEDS: CHLORHEXIDINE 0.12% ORAL RINSE 60 ML BOTTLE SWISH/SPIT SCH (09:05)
[2018-11-30] MEDS: ASPIRIN EC 325 MG TABLET PO SCH (09:10)
[2018-11-30] MEDS: METOPROLOL TARTRATE 25 MG TABLET PO SCH (09:10)
[2018-11-30] MEDS: MAGNESIUM OXIDE 400 MG TABLET PO SCH (09:10)
[2018-11-30] MEDS: PANTOPRAZOLE 40 MG TABLET PO SCH (09:10)
[2018-11-30] MEDS: DOCUSATE SODIUM 100 MG CAPSULE PO SCH (09:10)
[2018-11-30] MEDS: FERROUS SULFATE 325 MG TABLET PO SCH (09:10)
[2018-11-30] MEDS: ENOXAPARIN 80 MG/0.8 ML SYRINGE SUBCUT SCH (09:10)
== END 2018-11-30 10:54 | disposition home health service (06) | DRG 236 ==
LOC: N.TELEN 08:51 → N.CVR 11-23 07:47 → N.ICU 11-24 09:55 → N.TELES 11-28 09:38